=== PATIENT | female | born 1985 ===

== ENCOUNTER 2024-03-06 09:22 | Outpatient (RCR) | payer BC, SELFPAY | END 2024-03-31 14:51 | disposition home or self-care (01) | LOC: PT 09:22 | PROVIDERS: PCP Nurse Practitioner Family; Visit Provider Nurse Practitioner Family | DX: M79.652 Pain in left thigh (principal) | CPT/HCPCS: 97010; 97014; 97110; 97140; 97161 ==

== ENCOUNTER 2024-04-01 09:11 | Outpatient (RCR) | payer BC, SELFPAY | END 2024-05-27 10:23 | disposition home or self-care (01) | LOC: PT 09:11 | PROVIDERS: PCP Nurse Practitioner Family; Visit Provider Nurse Practitioner Family | DX: M79.652 Pain in left thigh (principal) | CPT/HCPCS: 97010; 97014; 97110; 97112; 97140 ==